=== PATIENT | male | born 1970 | race Caucasian/White ===

== ENCOUNTER 2017-09-10 20:09 | Emergency (ER) | payer BC ==
[2017-09-10] MEDS ORDERED: Acetaminophen/HYDROcodone 325-10 MG Tab PO ONE (20:10)
[2017-09-10 20:19] VITALS: BP 117/56
--- NOTE | 2017-09-10 20:50 | EDM.PDOC ---
ED HPI GENERAL MEDICAL PROBLEM - General Chief Complaint: Upper Extremity Injury/Pain Stated Complaint: dropped diaz of vehicle on hand [phone] Time Seen by Provider: 09/10/17 20:49 Source of Information: Reports: Patient History Limitations: Reports: No Limitations - History of Present Illness INITIAL COMMENTS - FREE TEXT/NARRATIVE: diaz of jeep fell onto left wrist yesterday today thumb all swollen and painful Right Hand Pain Score (Numeric/FACES): 6 - Related Data Allergies Allergy/AdvReac Type Severity Reaction Status Date / Time cyclobenzaprine HCl Allergy Tachycardia Verified 09/10/17 20:19 [From Flexeril] meperidine HCl [From Demerol] Allergy Vomiting Verified 09/10/17 20:19 morphine Allergy Vomiting Verified 09/10/17 20:19 Sulfa (Sulfonamide Allergy Itching Verified 09/10/17 20:19 Antibiotics) bee stings Allergy Tachycardia Uncoded 09/10/17 20:19 Home Meds: Home Meds Digoxin [Digox] 0.5 tab PO QPM 01/25/14 [History] Digoxin [Digox] 1 tab PO QAM 01/25/14 [History] FLUoxetine HCl [Fluoxetine HCl] 1 tab PO DAILY 01/25/14 [History] Lisinopril [Prinivil] 2 tab PO DAILY 01/25/14 [History] Metoprolol Tartrate [Lopressor] 1 tab PO BID 01/25/14 [History] Gabapentin [Neurontin] 600 mg PO TID 07/26/15 [History] Meloxicam 15 mg PO DAILY 07/26/15 [History] Methocarbamol 500 mg PO ASDIRECTED PRN 07/26/15 [History] Multivitamin with Minerals [Multiple Vitamin] 1 tab PO DAILY 07/26/15 [History] Omeprazole 20 mg PO DAILY 07/26/15 [History] traZODone HCl [Trazodone HCl] 50 mg PO DAILY 09/10/17 [History] Past Medical History HEENT History: Reports: Impaired Vision Other HEENT History: wears glasses Cardiovascular History: Reports: CAD, Heart Valve Replacement, High Cholesterol , Hypertension Respiratory History: Reports: None Gastrointestinal History: Reports: GERD Genitourinary History: Reports: None Musculoskeletal History: Reports: Back Pain, Chronic, Osteoarthritis Neurological History: Reports: None Psychiatric History: Reports: Depression Endocrine/Metabolic History: Reports: None Hematologic History: Reports: None Immunologic History: Reports: None Oncologic (Cancer) History: Reports: None Dermatologic History: Reports: None - Infectious Disease History Infectious Disease History: Reports: Chicken Pox - Past Surgical History Head Surgeries/Procedures: Reports: None GI Surgical History: Reports: Hernia, Inguinal Social & Family History - Family History Family Medical History: Noncontributory - Tobacco Use Smoking Status *Q: Never Smoker Second Hand Smoke Exposure: No - Caffeine Use Caffeine Use: Reports: Coffee, Soda, Tea - Recreational Drug Use Recreational Drug Use: No - Living Situation & Occupation Living situation: Reports: , with Family Occupation: Employed Review of Systems - Review of Systems Review Of Systems: ROS reveals no pertinent complaints other than HPI. ED EXAM, GENERAL - Physical Exam Exam: See Below Exam Limited By: No Limitations General Appearance: Alert, WD/WN, Mild Distress, Other (pain) Ears: Hearing Grossly Normal Throat/Mouth: Normal Voice, No Airway Compromise Head: Atraumatic Neck: Non-Tender, Full Range of Motion Respiratory/Chest: No Respiratory Distress Cardiovascular: Regular Rate, Rhythm GI/Abdominal: Soft, Non-Tender Extremities: Other (left thumb swollen tender R/P, NV wnl. no gross D/D.) Neurological: Alert, Oriented, Normal Cognition, Normal Gait, No Motor/Sensory Deficits Psychiatric: Flat Affect Skin Exam: Warm, Dry, Normal Color Lymphatic: No Adenopathy Course - Vital Signs Last Recorded V/S: Last Vital Signs Temp 36.6 C 09/10/17 20:15 Pulse 58 L 09/10/17 20:15 Resp 18 09/10/17 20:15 BP 117/56 L 09/10/17 20:15 Pulse Ox 97 09/10/17 20:15 - Re-Assessments/Exams Free Text/Narrative Re-Assessment/Exam: 09/10/17 21:21 results discussed with pt. Departure - Departure Time of Disposition: 21:22 Disposition: Home, Self-Care 01 Condition: Good Clinical Impression: Thumb contusion Qualifiers: Encounter type: initial encounter Damage to nail status: without damage Laterality: left Qualified Code(s): S60.012A - Contusion of left thumb without damage to nail, initial encounter - Discharge Information Instructions: Contusion, [id number] Referrals: Kelsey Mansfield, [employer] [Primary Care Provider] - Forms: ED Department Discharge Additional Instructions: 1) wear brace for comfort 2) ice intermittently to swelling 3) see clinic for possible MRI SCAN if not totally better in few days 4) recheck if there is any change or concern
[2017-09-10] MEDS ORDERED: Acetaminophen/HYDROcodone 325-10 MG Tab ONE (21:23)
== END 2017-09-10 21:27 | disposition home or self-care (01) ==
LOC: DL.ED 20:09
DX: S60.012A Contusion of left thumb without damage to nail, initial encounter (principal); E78.00 Pure hypercholesterolemia, unspecified; I10 Essential (primary) hypertension; Z88.2 Allergy status to sulfonamides; Z91.030 Bee allergy status; Z88.5 Allergy status to narcotic agent; Z88.8 Allergy status to other drugs, medicaments and biological substances; Z79.899 Other long term (current) drug therapy; W20.8XXA Other cause of strike by thrown, projected or falling object, initial encounter
CPT/HCPCS: 73130-LT; 99283; A9270-GY

== ENCOUNTER 2017-10-30 15:05 | Emergency (ER) | payer BC ==
[2017-10-30] MEDS ORDERED: Dexamethasone 4 MG/ML SDV IM ONE (17:36)
--- NOTE | 2017-10-30 17:49 | EDM.PDOC ---
Scribed by Poonam Mejias 10/30/17 8520 for Richie Mello MD ED HPI GENERAL MEDICAL PROBLEM - General Chief Complaint: Back Pain or Injury Stated Complaint: [id number] severe BACK PAIN Time Seen by Provider: 10/30/17 17:16 Source of Information: Reports: Patient, RN, RN Notes Reviewed History Limitations: Reports: No Limitations - History of Present Illness INITIAL COMMENTS - FREE TEXT/NARRATIVE: Patient presents to ER with complaint of flareup of chronic low back pain without any recent or new injury. Pain has been radiating down the right leg to the knee. Patient has history of 5 surgeries including hardware placement and fusion of the lower lumbar segments by Dr. Day in [place]. He has an appointment to see his doctor on Monday. Patient takes hydrocodone, Gabapentin and methacarbamol and Meloxican for his chronic pain. Onset: Gradual Duration: Getting Worse Location: Reports: Back (low) Quality: Reports: Ache Severity: Severe Improves with: Reports: None Worsens with: Reports: None Associated Symptoms: Reports: No Other Symptoms - Related Data Allergies Allergy/AdvReac Type Severity Reaction Status Date / Time cyclobenzaprine HCl Allergy Tachycardia Verified 09/10/17 20:19 [From Flexeril] meperidine HCl [From Demerol] Allergy Vomiting Verified 09/10/17 20:19 morphine Allergy Vomiting Verified 09/10/17 20:19 Sulfa (Sulfonamide Allergy Itching Verified 09/10/17 20:19 Antibiotics) bee stings Allergy Tachycardia Uncoded 09/10/17 20:19 Home Meds: Home Meds Digoxin [Digox] 0.5 tab PO QPM 01/25/14 [History] Digoxin [Digox] 1 tab PO QAM 01/25/14 [History] Lisinopril [Prinivil] 2 tab PO DAILY 01/25/14 [History] Metoprolol Tartrate [Lopressor] 1 tab PO BID 01/25/14 [History] Gabapentin [Neurontin] 600 mg PO TID 07/26/15 [History] Meloxicam 15 mg PO DAILY 07/26/15 [History] Methocarbamol 500 mg PO ASDIRECTED PRN 07/26/15 [History] Multivitamin with Minerals [Multiple Vitamin] 1 tab PO DAILY 07/26/15 [History] Omeprazole 20 mg PO DAILY 07/26/15 [History] traZODone HCl [Trazodone HCl] 50 mg PO DAILY 09/10/17 [History] Past Medical History HEENT History: Reports: Impaired Vision Other HEENT History: wears glasses Cardiovascular History: Reports: CAD, Heart Valve Replacement, High Cholesterol , Hypertension Respiratory History: Reports: None Gastrointestinal History: Reports: GERD Genitourinary History: Reports: None Musculoskeletal History: Reports: Back Pain, Chronic, Osteoarthritis Neurological History: Reports: None Psychiatric History: Reports: Depression Endocrine/Metabolic History: Reports: None Hematologic History: Reports: None Immunologic History: Reports: None Oncologic (Cancer) History: Reports: None Dermatologic History: Reports: None - Infectious Disease History Infectious Disease History: Reports: Chicken Pox - Past Surgical History Head Surgeries/Procedures: Reports: None GI Surgical History: Reports: Hernia, Inguinal Social & Family History - Family History Family Medical History: Noncontributory - Caffeine Use Caffeine Use: Reports: Coffee, Soda, Tea - Living Situation & Occupation Living situation: Reports: , with Family Occupation: Employed ED ROS GENERAL - Review of Systems Review Of Systems: ROS reveals no pertinent complaints other than HPI. ED EXAM,LOWER BACK PAIN/INJURY - Physical Exam Exam: See Below Exam Limited By: No Limitations General Appearance: Alert, WD/WN, No Apparent Distress Head: Atraumatic, Normocephalic Respiratory/Chest: No Respiratory Distress Cardiovascular: Normal Peripheral Pulses GI/Abdominal: Normal Bowel Sounds, Soft, Non-Tender, No Distention Back Exam: Decreased Range of Motion (due to pain), Muscle Spasm (lumbar region) , Paraspinal Tenderness (lumbar ), Other (A well healed midline low lumbar surgical scar of approximately 7cm. ). No: CVA Tenderness (L), CVA Tenderness ( R), Vertebral Tenderness Extremities: Normal Inspection, Normal Range of Motion, Non-Tender, No Pedal Edema, Normal Capillary Refill Neurological: Alert, Normal Mood/Affect, Normal Dorsiflexion, CN II-XII Intact, Normal Plantar Flexion, No Motor/Sensory Deficits, Oriented x 3, Other ( antalgic gait, but steady.) Psychiatric: Normal Affect, Normal Mood Skin Exam: Warm, Dry, Intact, Normal Color, No Rash Course - Orders/Labs/Meds Meds: Medications Discontinued Medications Generic Name Dose Route Start Last Admin Trade Name Freq PRN Reason Stop Dose Admin Dexamethasone 8 mg 07/09/18 17:36 10/30/17 17:44 Dexamethasone IM 10/30/17 17:37 8 mg ONETIME ONE Administration Departure - Departure Time of Disposition: 17:44 Disposition: Home, Self-Care 01 Condition: Fair Clinical Impression: Acute exacerbation of chronic low back pain, Lumbar radiculopathy - Discharge Information Instructions: Chronic Back Pain, Lumbosacral Radiculopathy Referrals: Kelsey Mansfield SANITATION MANAGER [Primary Care Provider] - Forms: ED Department Discharge Additional Instructions: RX: Decadron 4mg. RX: Lidocaine ointment5%. Follow up with your back specialist as scheduled. I have read and agree with the documentation that has been completed regarding this visit. By signing this record, I attest that the documentation was completed in my physical presence and is an accurate record of the encounter.
== END 2017-10-30 17:58 | disposition home or self-care (01) ==
LOC: DL.ED 15:05
DX: M54.16 Radiculopathy, lumbar region (principal); I10 Essential (primary) hypertension; Z88.8 Allergy status to other drugs, medicaments and biological substances; Z88.5 Allergy status to narcotic agent; Z88.2 Allergy status to sulfonamides; Z91.030 Bee allergy status; Z79.899 Other long term (current) drug therapy
CPT/HCPCS: 96372; 99283; J1100

== ENCOUNTER 2017-12-17 16:18 | Emergency (ER) | payer BC ==
[2017-12-17 16:27] VITALS: BP 151/80
[2017-12-17] MEDS ORDERED: Aspirin 81 MG Tab.Chew PO ONE (16:40)
[2017-12-17 17:07] LABS: ANION GAP 10.9; CHLORIDE,CL 102 mmol/L (101-111); SODIUM,NA 138 mmol/L (135-145)
--- NOTE | 2017-12-17 18:11 | EDM.PDOC ---
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 He has had increased stress recently with a divorce and an aunt who today. Patient works at [employer] today and developed chest discomfort and tightness in his chest about 1-1/2 hours ago. His release engineer in [facility] in [place]. He last saw her in September and everything was good. He takes Dig 0.25 in the a.m. and 1/2 of 0.25 evening. Patient states he can feel the skipped beats. Onset: Today Duration: Constant Location: Reports: Chest Quality: Reports: Ache Severity: Moderate Improves with: Reports: None Worsens with: Reports: None Associated Symptoms: Reports: No Other Symptoms - Related Data Allergies Allergy/AdvReac Type Severity Reaction Status Date / Time cyclobenzaprine HCl Allergy Tachycardia Verified 12/17/17 16:24 [From Flexeril] meperidine HCl [From Demerol] Allergy Vomiting Verified 12/17/17 16:24 morphine Allergy Vomiting Verified 12/17/17 16:24 Sulfa (Sulfonamide Allergy Itching Verified 12/17/17 16:24 Antibiotics) bee stings Allergy Tachycardia Uncoded 12/17/17 16:24 Home Meds: Home Meds Digoxin [Digox] 0.5 tab PO QPM 01/25/14 [History] Digoxin [Digox] 1 tab PO QAM 01/25/14 [History] Lisinopril [Prinivil] 2 tab PO DAILY 01/25/14 [History] Metoprolol Tartrate [Lopressor] 1 tab PO BID 01/25/14 [History] Gabapentin [Neurontin] 600 mg PO TID 07/26/15 [History] Meloxicam 15 mg PO DAILY 07/26/15 [History] Methocarbamol 500 mg PO ASDIRECTED PRN 07/26/15 [History] Multivitamin with Minerals [Multiple Vitamin] 1 tab PO DAILY 07/26/15 [History] Omeprazole 20 mg PO DAILY 07/26/15 [History] traZODone HCl [Trazodone HCl] 50 mg PO DAILY 09/10/17 [History] Past Medical History HEENT History: Reports: Impaired Vision Other HEENT History: wears glasses Cardiovascular History: Reports: CAD, Heart Valve Replacement, High Cholesterol , Hypertension, Other (See Below) (WPW with Maise treatment in 2004.) Respiratory History: Reports: None Gastrointestinal History: Reports: GERD Genitourinary History: Reports: None Musculoskeletal History: Reports: Back Pain, Chronic, Osteoarthritis Neurological History: Reports: None Psychiatric History: Reports: Depression Endocrine/Metabolic History: Reports: None Hematologic History: Reports: None Immunologic History: Reports: None Oncologic (Cancer) History: Reports: None Dermatologic History: Reports: None - Infectious Disease History Infectious Disease History: Reports: Chicken Pox - Past Surgical History Head Surgeries/Procedures: Reports: None GI Surgical History: Reports: Hernia, Inguinal Musculoskeletal Surgical History: Reports: Carpal Tunnel, Other (See Below) Other Musculoskeletal Surgeries/Procedures:: back, neck Social & Family History - Family History Family Medical History: Noncontributory - Tobacco Use Smoking Status *Q: Never Smoker Second Hand Smoke Exposure: No - Caffeine Use Caffeine Use: Reports: Soda - Recreational Drug Use Recreational Drug Use: No - Living Situation & Occupation Living situation: Reports: , with Family Occupation: Employed ED ROS GENERAL - Review of Systems Review Of Systems: ROS reveals no pertinent complaints other than HPI. ED EXAM, GENERAL - Physical Exam Exam: See Below Exam Limited By: No Limitations General Appearance: Alert, WD/WN, No Apparent Distress Eye Exam: Bilateral Eye: EOMI, Normal Inspection, PERRL Ears: Normal External Exam, Normal Canal, Hearing Grossly Normal, Normal TMs Nose: Normal Inspection, Normal Mucosa, No Blood Throat/Mouth: Normal Inspection, Normal Lips, Normal Teeth, Normal Gums, Normal Oropharynx, Normal Voice, No Airway Compromise Head: Atraumatic, Normocephalic Neck: Normal Inspection, Supple, Non-Tender, Full Range of Motion Respiratory/Chest: No Respiratory Distress, Lungs Clear Cardiovascular: Other (Systolic murmur grade 3/6. Irregular irregular.) GI/Abdominal: Normal Bowel Sounds, Soft, Non-Tender, No Organomegaly, No Distention, No Abnormal Bruit, No Mass (Male) Exam: Deferred Rectal (Males) Exam: Deferred Back Exam: Normal Inspection, Full Range of Motion, NT Extremities: Normal Inspection, Normal Range of Motion, Non-Tender, Normal Capillary Refill, No Pedal Edema Neurological: Alert, Oriented, CN II-XII Intact, Normal Cognition, Normal Gait, Normal Reflexes, No Motor/Sensory Deficits Psychiatric: Normal Affect, Normal Mood Skin Exam: Warm, Dry, Intact, Normal Color, No Rash Lymphatic: No Adenopathy Course - Vital Signs Last Recorded V/S: Last Vital Signs Temp 36.5 C 12/17/17 16:25 Pulse 68 12/17/17 16:25 Resp 16 12/17/17 16:25 BP 151/80 H 12/17/17 16:25 Pulse Ox 98 12/17/17 16:25 - Orders/Labs/Meds Orders: Active Orders 24 hr Category Date Time Status EKG Documentation Completion [RC] URGENT Care 12/17/17 16:23 Active Chest 1V Frontal [CR] Urgent Exams 12/17/17 16:23 Taken Labs: Laboratory Tests 12/17/17 12/17/17 12/17/17 Range/Units 16:34 16:34 16:34 WBC 8.6 (5.0-10.0) 10^3/uL RBC 4.17 L (4.6-6.2) 10^6/uL Hgb 12.6 L D (14.0-18.0) g/dL Hct 37.6 L (40.0-54.0) % MCV 90.2 D (80-100) fL MCH 30.2 (27.0-34.0) pg MCHC 33.5 (33.0-35.0) g/dL Plt Count 191 (150-450) 10^3/uL Neut % (Auto) 59.3 (42.2-75.2) % Lymph % (Auto) 26.6 (20.5-50.1) % [place] % (Auto) 12.7 H (2-8) % Eos % (Auto) 0.8 L (1.0-3.0) % Baso % (Auto) 0.6 (0.0-1.0) % Sodium 138 (135-145) mmol/L Potassium 3.9 (3.6-5.0) mmol/L Chloride 102 (101-111) mmol/L Carbon Dioxide 29.0 (21.0-31.0) mmol/L Anion Gap 10.9 BUN 24 H (7-18) mg/dL Creatinine 0.9 (0.6-1.3) mg/dL Est Cr Clr Drug Dosing 95.89 mL/min Estimated GFR (MDRD) > 60 BUN/Creatinine Ratio 26.66 Glucose 88 (74-105) mg/dL Calcium 8.7 (8.4-10.2) mg/dl Total Bilirubin 0.6 (0.2-1.0) mg/dL AST 27 (10-42) IU/L ALT 31 (10-60) IU/L Alkaline Phosphatase 100 (42-121) IU/L Troponin I < 0.02 (0.00-0.02) ng/ml Total Protein 7.7 (6.7-8.2) g/dl Albumin 4.1 (3.2-5.5) g/dl Globulin 3.6 Albumin/Globulin Ratio 1.14 Digoxin 1.1 (0-2.5) ng/ml Meds: Medications Discontinued Medications Generic Name Dose Route Start Last Admin Trade Name Freq PRN Reason Stop Dose Admin Aspirin 324 mg 12/17/17 16:40 12/17/17 16:44 Aspirin PO 12/17/17 16:41 324 mg ONETIME ONE Administration - Re-Assessments/Exams Free Text/Narrative Re-Assessment/Exam: 12/17/17 18:06 Consulted with [facility] regarding the patient's history, EKG, lab and x-ray results. Cardiology advised to have the patient contact his release engineer tomorrow to have a holter monitor placed. Departure - Departure Time of Disposition: 18:08 Disposition: Home, Self-Care 01 Condition: Fair Clinical Impression: Finding of multiple premature atrial contractions by electrocardiography Chest pain Qualifiers: Chest pain type: unspecified Qualified Code(s): R07.9 - Chest pain, unspecified Instructions: Nonspecific Chest Pain, [id number] Forms: ED Department Discharge Care Plan Goals: The patient was advised of the examination, lab, EKG and x-ray results during the visit. The patient was encouraged to follow-up with his release engineer tomorrow for continued evaluation and management. If the patient has any additional symptoms or concerns, the patient should follow-up with his primary care facility or return to the emergency department. - My Orders Last 24 Hours: My Active Orders 12/17/17 16:23 EKG Documentation Completion [RC] URGENT Chest 1V Frontal [CR] Urgent - Assessment/Plan Last 24 Hours: My Active Orders 12/17/17 16:23 EKG Documentation Completion [RC] URGENT Chest 1V Frontal [CR] Urgent I have read and agree with the documentation that has been completed regarding this visit. By signing this record, I attest that the documentation was completed in my physical presence and is an accurate record of the encounter.
--- NOTE | 2017-12-18 16:28 | EKG ---
12/17/2017 - MEME MONTENEGRO - TIME: 4:28 p.m. FINDINGS: As per my reading, sinus rhythm at 55, multiple atrial premature complexes. [facility] /[id number]
== END 2017-12-17 18:13 | disposition home or self-care (01) ==
LOC: DL.ED 16:18
DX: I49.1 Atrial premature depolarization (principal); I10 Essential (primary) hypertension; Z88.2 Allergy status to sulfonamides; Z91.030 Bee allergy status; Z79.899 Other long term (current) drug therapy; Z88.5 Allergy status to narcotic agent; Z88.8 Allergy status to other drugs, medicaments and biological substances
CPT/HCPCS: 36415; 71045; 80053; 80162; 84484; 85025; 93005; 99285; A9270

== ENCOUNTER 2019-02-23 11:46 | Emergency (ER) | payer BC, OTHER ==
[2019-02-23 12:00] VITALS: BP 146/71; PULSE 65
[2019-02-23] MEDS ORDERED: Ketorolac 30 MG/ML SDV IM ONE (12:23)
[2019-02-23] MEDS ORDERED: Lidocaine 5% Oint 35.44 GM Tube TOP ONE (12:29)
--- NOTE | 2019-02-23 12:30 | EDM.PDOC ---
Scribed by Poonam Mejias 02/23/19 1228 for Richie Mello MD ED HPI GENERAL MEDICAL PROBLEM - General Chief Complaint: General Stated Complaint: PAIN Time Seen by Provider: 02/23/19 12:10 Source of Information: Reports: Patient, RN, RN Notes Reviewed History Limitations: Reports: No Limitations - History of Present Illness INITIAL COMMENTS - FREE TEXT/NARRATIVE: Patient presents to ER by POV with complaint of generalized pain from chronic health issues. He has history of RA and OA, back surgeries and neck surgeries. Denies any new or recent injury. Onset: Gradual Duration: Constant Location: Reports: Generalized Quality: Reports: Ache Severity: Severe Improves with: Reports: None Worsens with: Reports: None Associated Symptoms: Reports: No Other Symptoms Generalized Pain Score (Numeric/FACES): 4 - Related Data Allergies Allergy/AdvReac Type Severity Reaction Status Date / Time meperidine HCl [From Demerol] Allergy Vomiting Verified 02/23/19 12:02 morphine Allergy Vomiting Verified 02/23/19 12:02 Sulfa (Sulfonamide Allergy Itching Verified 02/23/19 12:02 Antibiotics) bee stings Allergy Tachycardia Uncoded 02/23/19 12:02 Home Meds: Home Meds Digoxin [Digox] 0.5 tab PO QPM 01/25/14 [History] Lisinopril [Prinivil] 2 tab PO DAILY 01/25/14 [History] Metoprolol Tartrate [Lopressor] 150 tab PO BID 01/25/14 [History] Gabapentin [Neurontin] 1,200 mg PO TID 07/26/15 [History] Meloxicam 15 mg PO DAILY 07/26/15 [History] Methocarbamol 500 mg PO ASDIRECTED PRN 07/26/15 [History] Multivitamin with Minerals [Multiple Vitamin] 1 tab PO DAILY 07/26/15 [History] Omeprazole 20 mg PO DAILY 07/26/15 [History] traZODone HCl [Trazodone HCl] 50 mg PO DAILY 09/10/17 [History] Hydrocodone/Acetaminophen [Hydrocodon-Acetaminophen 5-325] 1 tab PO ASDIRECTED PRN 06/28/18 [History] Digoxin [Digitek] 250 mcg PO DAILY 02/23/19 [History] Past Medical History HEENT History: Reports: Impaired Vision Other HEENT History: wears glasses Cardiovascular History: Reports: CAD, Heart Valve Replacement, High Cholesterol , Hypertension, Other (See Below) Respiratory History: Reports: None Gastrointestinal History: Reports: GERD Genitourinary History: Reports: None Musculoskeletal History: Reports: Back Pain, Chronic, Neck Pain, Chronic, Osteoarthritis Neurological History: Reports: None Psychiatric History: Reports: Depression Endocrine/Metabolic History: Reports: None Hematologic History: Reports: None Immunologic History: Reports: None Oncologic (Cancer) History: Reports: None Dermatologic History: Reports: None - Infectious Disease History Infectious Disease History: Reports: Chicken Pox - Past Surgical History Head Surgeries/Procedures: Reports: None GI Surgical History: Reports: Hernia, Inguinal Musculoskeletal Surgical History: Reports: Carpal Tunnel, Other (See Below) Other Musculoskeletal Surgeries/Procedures:: back, neck surgery Social & Family History - Family History Family Medical History: Noncontributory - Tobacco Use Smoking Status *Q: Never Smoker - Caffeine Use Caffeine Use: Reports: Energy Drinks - Recreational Drug Use Recreational Drug Use: No - Living Situation & Occupation Living situation: Reports: , with Family Occupation: Employed ED ROS GENERAL - Review of Systems Review Of Systems: ROS reveals no pertinent complaints other than HPI. ED EXAM, GENERAL - Physical Exam Exam: See Below Exam Limited By: No Limitations General Appearance: Alert, WD/WN, No Apparent Distress Eye Exam: Bilateral Eye: Normal Inspection Throat/Mouth: Normal Inspection Head: Atraumatic, Normocephalic Neck: Normal Inspection, Non-Tender Respiratory/Chest: No Respiratory Distress, Lungs Clear, Normal Breath Sounds, No Accessory Muscle Use, Chest Non-Tender Cardiovascular: Regular Rate, Rhythm Back Exam: Decreased Range of Motion (Chronic/stable per pt). No: CVA Tenderness (L), CVA Tenderness (R), Paraspinal Tenderness, Vertebral Tenderness Extremities: Normal Capillary Refill, Joint Swelling (Chronic/stable at B/L hands/fingers per pt.), Limited Range of Motion (Hands, fingers, ankles). No: Increased Warmth, Redness Neurological: Alert, Oriented, CN II-XII Intact, Normal Cognition, No Motor/ Sensory Deficits Psychiatric: Normal Mood Skin Exam: Warm, Dry, Intact, Normal Color, No Rash Course - Vital Signs Last Recorded V/S: Last Vital Signs Temp 97.6 F 02/23/19 11:56 Pulse 65 02/23/19 11:56 Resp 14 02/23/19 11:56 BP 146/71 H 02/23/19 11:56 Pulse Ox 100 02/23/19 11:56 - Orders/Labs/Meds Orders: Active Orders 24 hr Category Date Time Status Lidocaine 5% Med 02/23/19 12:29 Once 15 gm TOP ONETIME ONE Meds: Medications Discontinued Medications Generic Name Dose Route Start Last Admin Trade Name Freq PRN Reason Stop Dose Admin Ketorolac Tromethamine 60 mg 02/23/19 12:23 Toradol IM 02/23/19 12:24 ONETIME ONE Departure - Departure Time of Disposition: 12:27 Disposition: Home, Self-Care 01 Condition: Good Clinical Impression: Rheumatoid arthritis flare - Discharge Information *PRESCRIPTION DRUG MONITORING PROGRAM REVIEWED*: No *COPY OF PRESCRIPTION DRUG MONITORING REPORT IN PATIENT JULIANNE: No Instructions: Arthritis Forms: ED Department Discharge Additional Instructions: Rx: Prednisone 20mg Use the Lidocaine Ointment to affected joints every 4 to 6 hours as needed for pain. Follow up in clinic this week for recheck and referral to kiss mixer. - My Orders Last 24 Hours: My Active Orders 02/23/19 12:29 Lidocaine 5% 15 gm TOP ONETIME ONE - Assessment/Plan Last 24 Hours: My Active Orders 02/23/19 12:29 Lidocaine 5% 15 gm TOP ONETIME ONE I have read and agree with the documentation that has been completed regarding this visit. By signing this record, I attest that the documentation was completed in my physical presence and is an accurate record of the encounter.
== END 2019-02-23 12:42 | disposition home or self-care (01) ==
LOC: DL.ED 11:46
DX: M06.9 Rheumatoid arthritis, unspecified (principal); I25.10 Atherosclerotic heart disease of native coronary artery without angina pectoris; I10 Essential (primary) hypertension; K21.9 Gastro-esophageal reflux disease without esophagitis; Z91.030 Bee allergy status; Z88.5 Allergy status to narcotic agent; Z88.2 Allergy status to sulfonamides; Z79.899 Other long term (current) drug therapy
CPT/HCPCS: 96372; 99283; A9270; J1885

== ENCOUNTER 2020-05-02 10:17 | Emergency (ER) | payer BC ==
[2020-05-02 10:24] VITALS: BP 106/47; PULSE 64
[2020-05-02] MEDS ORDERED: Sodium Chloride 0.9% 10 ML Syringe FLUSH PRN (10:24)
[2020-05-02] MEDS ORDERED: Aspirin 81 MG Tab.Chew PO ONE (10:25)
--- NOTE | 2020-05-02 10:53 | CR ---
PROCEDURE INFORMATION: Exam: XR Chest, 1 View Exam date and time: 05/02/2020 10:44 AM Age: 50 years old Clinical indication: Chest pain TECHNIQUE: Imaging protocol: XR of the chest Views: 1 view. COMPARISON: CR Chest 1V Frontal 12/17/2017 4:39 PM FINDINGS: Lungs: Unremarkable. No consolidation. Pleural space: Unremarkable. No pleural effusion. No pneumothorax. Heart/Mediastinum: The heart size is mildly enlarged with postoperative change from prior cardiac surgery. Bones/joints: Unremarkable. IMPRESSION: 1. Cardiomegaly and postoperative change. No acute cardiopulmonary disease present.
[2020-05-02 11:03] LABS: PTT,PARTIAL THROMBOPLSTIN TIME 28.1 SEC (22.0-34.0)
[2020-05-02 11:11] LABS: ANION GAP 15.1 mEq/L (7-13); CHLORIDE,CL 105 mmol/L (98-107); SODIUM,NA 141 mmol/L (136-145)
--- NOTE | 2020-05-02 12:04 | EDM.PDOC ---
Scribed by Poonam Mejias 05/02/20 1113 for Lyle Mello MD ED HPI GENERAL MEDICAL PROBLEM - General Chief Complaint: Chest Pain Stated Complaint: CHEST PAIN Time Seen by Provider: 05/02/20 10:22 Source of Information: Reports: Patient, RN, RN Notes Reviewed History Limitations: Reports: No Limitations - History of Present Illness INITIAL COMMENTS - FREE TEXT/NARRATIVE: Patient arrives to ED by POV with chest pain for 2 days. He has had recurrent postural near syncope for 2 weeks. Chest pain is intermittent centered in left chest radiating into left arm accompanied with nausea. No reported vomiting. Also complaining of dry cough. Rates the pain 3/10. Reports history of cold during where he felt congested with nausea and chills. Negative COVID test around . History of a tricuspid valve reconstruction in 2011. History of neck fusion and lumbar rods as well as spinal stimulator Denies fever, productive cough, chills, headache, blurry vision, difficulty swallowing, shortness of breath, abdominal pain and edema in the lower extremities. Onset: Gradual Duration: Waxing/Waning Location: Reports: Chest, Upper Extremity, Left Quality: Reports: Sharp Severity: Mild Improves with: Reports: None Worsens with: Reports: None Associated Symptoms: Reports: Nausea/Vomiting, Syncope (near) Left Chest Pain Score (Numeric/FACES): 3 - Related Data Allergies Allergy/AdvReac Type Severity Reaction Status Date / Time meperidine HCl [From Demerol] Allergy Vomiting Verified 05/02/20 10:24 morphine Allergy Vomiting Verified 05/02/20 10:24 Sulfa (Sulfonamide Allergy Itching Verified 05/02/20 10:24 Antibiotics) bee stings Allergy Tachycardia Uncoded 05/02/20 10:24 Home Meds: Home Meds Metoprolol Tartrate [Lopressor] 150 tab PO BID 01/25/14 [History] lisinopriL [Prinivil] 2 tab PO DAILY 01/25/14 [History] Gabapentin [Neurontin] 1,200 mg PO TID 07/26/15 [History] Meloxicam 15 mg PO DAILY 07/26/15 [History] Multivitamin with Minerals [Multiple Vitamin] 1 tab PO DAILY 07/26/15 [History] Omeprazole 20 mg PO DAILY 07/26/15 [History] traZODone HCl [Trazodone HCl] 50 mg PO DAILY 09/10/17 [History] Digoxin [Digitek] 250 mcg PO DAILY 02/23/19 [History] Past Medical History HEENT History: Reports: Impaired Vision Other HEENT History: wears glasses Cardiovascular History: Reports: CAD, Heart Valve Replacement, High Cholesterol, Hypertension, Other (See Below) Respiratory History: Reports: None Gastrointestinal History: Reports: GERD Genitourinary History: Reports: None Musculoskeletal History: Reports: Back Pain, Chronic, Neck Pain, Chronic, Osteoarthritis Neurological History: Reports: None Psychiatric History: Reports: Depression Endocrine/Metabolic History: Reports: None Hematologic History: Reports: None Immunologic History: Reports: None Oncologic (Cancer) History: Reports: None Dermatologic History: Reports: None - Infectious Disease History Infectious Disease History: Reports: Chicken Pox - Past Surgical History Head Surgeries/Procedures: Reports: None GI Surgical History: Reports: Hernia, Inguinal Musculoskeletal Surgical History: Reports: Carpal Tunnel, Other (See Below) Other Musculoskeletal Surgeries/Procedures:: back, neck surgery Social & Family History - Family History Family Medical History: No Pertinent Family History - Caffeine Use Caffeine Use: Reports: Energy Drinks - Living Situation & Occupation Living situation: Reports: , with Family Occupation: Employed ED ROS GENERAL - Review of Systems Review Of Systems: Comprehensive ROS is negative, except as noted in HPI. ED EXAM, GENERAL - Physical Exam Exam: See Below Exam Limited By: No Limitations General Appearance: Alert, WD/WN, No Apparent Distress Nose: Normal Inspection Throat/Mouth: Normal Inspection, Normal Lips, Normal Teeth, Normal Gums, Normal Oropharynx, Normal Voice, No Airway Compromise Head: Atraumatic, Normocephalic Neck: Normal Inspection, Supple, Non-Tender, Full Range of Motion Respiratory/Chest: No Respiratory Distress, Lungs Clear, Normal Breath Sounds, No Accessory Muscle Use, Chest Non-Tender Cardiovascular: Normal Peripheral Pulses, Regular Rate, Rhythm, No Edema, No Gallop, No JVD, No Murmur, No Rub Peripheral Pulses: 2+: Radial (R), 4+: Carotid (L), Carotid (R), Brachial (L), Brachial (R), Radial (L), Femoral (L), Femoral (R), Posterior Tibial (L), Posterior Tibial (R), Dorsalis Pedis (L), Dorsalis Pedis (R) GI/Abdominal: Soft, Non-Tender (Male) Exam: Deferred Rectal (Males) Exam: Deferred Neurological: Alert, Oriented, Normal Cognition Psychiatric: Normal Affect #1 Interpretation EKG Date: 05/02/20 Time: 10:25 Rhythm: Other (sinus rhythm) Rate (Beats/Min): 61 [place]: Normal P-Wave: Present QRS: Normal ST-T: Other (borderline T abnormalities, diffuse leads) QT: Normal Comparison: No Change Course - Vital Signs Last Recorded V/S: Last Vital Signs Temp 97.3 F 05/02/20 10:20 Pulse 64 05/02/20 10:20 Resp 18 05/02/20 10:20 BP 106/47 L 05/02/20 10:20 Pulse Ox 95 05/02/20 10:20 Orthostatic Blood Pressure [ 104/56 Standing] Orthostatic Blood Pressure [ 105/59 Sitting] Orthostatic Blood Pressure [ 103/51 Supine] - Orders/Labs/Meds Orders: Active Orders 24 hr Category Date Time Status EKG 12 Lead [EKG Documentation Completion] [RC] STAT Care 05/02/20 10:23 Active Orthostatic Vital Signs [RC] ASDIRECTED Care 05/02/20 10:33 Active Peripheral IV Care [RC] . DIRECTED Care 05/02/20 10:24 Active Sodium Chloride 0.9% [Saline Flush] Med 05/02/20 10:24 Active 10 ml FLUSH ASDIRECTED PRN Peripheral IV Insertion Adult [OM.PC] Routine Oth 05/02/20 10:23 Ordered Medication Orders Sodium Chloride (Saline Flush) 10 ml FLUSH ASDIRECTED PRN PRN Reason: Keep Vein Open Last Admin: 05/02/20 10:41 Dose: 10 ml Documented by: LILLIAM Labs: Laboratory Tests 05/02/20 05/02/20 05/02/20 Range/Units 10:36 10:36 10:36 WBC 8.0 (5.0-10.0) 10^3/uL RBC 4.44 L (4.6-6.2) 10^6/uL Hgb 13.8 L (14.0-18.0) g/dL Hct 39.9 L (40.0-54.0) % MCV 89.9 (80-100) fL MCH 31.1 (27.0-34.0) pg MCHC 34.6 (33.0-35.0) g/dL Plt Count 171 (150-450) 10^3/uL Neut % (Auto) 63.2 (42.2-75.2) % Lymph % (Auto) 24.5 (20.5-50.1) % [place] % (Auto) 10.3 H (2-8) % Eos % (Auto) 1.6 (1.0-3.0) % Baso % (Auto) 0.4 (0.0-1.0) % PT 10.4 (9.0-12.0) SEC INR 1.1 (0.9-1.2) APTT 28.1 (22.0-34.0) SEC D-Dimer, Quantitative (0-400) ng/mL Sodium 141 (136-145) mmol/L Potassium 4.1 (3.5-5.1) mmol/L Chloride 105 (98-107) mmol/L Carbon Dioxide 25 (21-32) mmol/L Anion Gap 15.1 H (7-13) mEq/L BUN 23 H (7-18) mg/dL Creatinine 1.08 (0.70-1.30) mg/dL Est Cr Clr Drug Dosing 74.66 mL/min Estimated GFR (MDRD) > 60 BUN/Creatinine Ratio 21.3 (No establ ref range) Glucose 95 (74-99) mg/dL Calcium 8.5 (8.5-10.1) mg/dL Magnesium 1.9 (1.8-2.4) mg/dL Total Bilirubin 0.3 (0.2-1.0) mg/dL AST 28 (15-37) U/L ALT 39 (16-63) U/L Alkaline Phosphatase 123 H (46-116) U/L Creatine Kinase 231 (39-308) U/L Troponin I < 0.017 (0.000-0.056) ng/mL B-Natriuretic Peptide 37 (0-100) pg/ml Total Protein 7.4 (6.4-8.2) g/dL Albumin 3.8 (3.4-5.0) g/dL Globulin 3.6 Albumin/Globulin Ratio 1.1 Amylase 51 (25-115) U/L Lipase 193 (73-393) U/L TSH, Ultra Sensitive 1.18 (0.36-3.74) uIU/mL Digoxin (0.9-2.0) ng/mL 05/02/20 05/02/20 Range/Units 10:36 10:36 WBC (5.0-10.0) 10^3/uL RBC (4.6-6.2) 10^6/uL Hgb (14.0-18.0) g/dL Hct (40.0-54.0) % MCV (80-100) fL MCH (27.0-34.0) pg MCHC (33.0-35.0) g/dL Plt Count (150-450) 10^3/uL Neut % (Auto) (42.2-75.2) % Lymph % (Auto) (20.5-50.1) % [place] % (Auto) (2-8) % Eos % (Auto) (1.0-3.0) % Baso % (Auto) (0.0-1.0) % PT (9.0-12.0) SEC INR (0.9-1.2) APTT (22.0-34.0) SEC D-Dimer, Quantitative < 100 (0-400) ng/mL Sodium (136-145) mmol/L Potassium (3.5-5.1) mmol/L Chloride (98-107) mmol/L Carbon Dioxide (21-32) mmol/L Anion Gap (7-13) mEq/L BUN (7-18) mg/dL Creatinine (0.70-1.30) mg/dL Est Cr Clr Drug Dosing mL/min Estimated GFR (MDRD) BUN/Creatinine Ratio (No establ ref range) Glucose (74-99) mg/dL Calcium (8.5-10.1) mg/dL Magnesium (1.8-2.4) mg/dL Total Bilirubin (0.2-1.0) mg/dL AST (15-37) U/L ALT (16-63) U/L Alkaline Phosphatase (46-116) U/L Creatine Kinase (39-308) U/L Troponin I (0.000-0.056) ng/mL B-Natriuretic Peptide (0-100) pg/ml Total Protein (6.4-8.2) g/dL Albumin (3.4-5.0) g/dL Globulin Albumin/Globulin Ratio Amylase (25-115) U/L Lipase (73-393) U/L TSH, Ultra Sensitive (0.36-3.74) uIU/mL Digoxin 2.3 H* (0.9-2.0) ng/mL Meds: Medications Generic Name Dose Route Start Last Admin Trade Name Freq PRN Reason Stop Dose Admin Sodium Chloride 10 ml 05/02/20 10:24 05/02/20 10:41 Saline Flush FLUSH 10 ml ASDIRECTED PRN Administration Keep Vein Open Discontinued Medications Generic Name Dose Route Start Last Admin Trade Name Freq PRN Reason Stop Dose Admin Aspirin 324 mg 05/02/20 10:25 05/02/20 10:40 Aspirin PO 05/02/20 10:26 324 mg ONETIME ONE Administration - Radiology Interpretation Free Text/Narrative:: [facility] [place] [facility] Final Radiology Report Call: [phone] assistance Online chat: [email or web address] Name: MEME MONTENEGRO Age: 50Years M Date: 05/02/2020 SSN: -- : [id number] Study: CR CHEST 1V FRONTAL Requesting Physician: LYLE MELLO Images: 1 Addl Studies: Provided Clinical History: chest pain Contrast: Contrast Medium: Contrast Amount: Contrast Method: CONFIDENTIALITY STATEMENT This report is intended only for use by the referring physician, and only in accordance with law. If you received this in error, call [phone]. Page 1 of 1 PROCEDURE INFORMATION: Exam: XR Chest, 1 View Exam date and time: 05/02/2020 10:44 AM Age: 50 years old Clinical indication: Chest pain TECHNIQUE: Imaging protocol: XR of the chest Views: 1 view. COMPARISON: CR Chest 1V Frontal 12/17/2017 4:39 PM FINDINGS: Lungs: Unremarkable. No consolidation. Pleural space: Unremarkable. No pleural effusion. No pneumothorax. Heart/Mediastinum: The heart size is mildly enlarged with postoperative change from prior cardiac surgery. Bones/joints: Unremarkable. IMPRESSION: 1. Cardiomegaly and postoperative change. No acute cardiopulmonary disease present. Thank you for allowing us to participate in the care of your patient. Dictated and Authenticated by: Romel Mishra MD 05/02/2020 10:52 AM Central Time ([place] & [place]) - Re-Assessments/Exams Free Text/Narrative Re-Assessment/Exam: 05/02/20 11:51 Pt has essentially ruled himself out from an acute cardiac ischemia standpoint. He has negative Troponin, no ischemic changes on his EKG, and no other acute findings on exam. He does have a moderately noticeable stronger pulse at the l eft radial, compared to the right radial wrist. Unclear if this is related to his recurrent near syncope or not. 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 Follow up Monday, with your primary clinic for consideration of CT Angio Neck and chest for evaluation of the difference in blood pressure and pulse strength in on your right arm compared to the left. Also, to see if that explains a vascular cause for your postural near syncope episodes. Sepsis Event Note (ED) - Focused Exam Vital Signs: Vital Signs Temp Pulse Resp BP Pulse Ox 05/02/20 10:20 97.3 F 64 18 106/47 L 95 - My Orders Last 24 Hours: My Active Orders 05/02/20 10:23 EKG 12 Lead [EKG Documentation Completion] [RC] STAT Peripheral IV Insertion Adult [OM.PC] Routine 05/02/20 10:24 Peripheral IV Care [RC] . DIRECTED Sodium Chloride 0.9% [Saline Flush] 10 ml FLUSH ASDIRECTED PRN 05/02/20 10:33 Orthostatic Vital Signs [RC] ASDIRECTED - Assessment/Plan Last 24 Hours: My Active Orders 05/02/20 10:23 EKG 12 Lead [EKG Documentation Completion] [RC] STAT Peripheral IV Insertion Adult [OM.PC] Routine 05/02/20 10:24 Peripheral IV Care [RC] . DIRECTED Sodium Chloride 0.9% [Saline Flush] 10 ml FLUSH ASDIRECTED PRN 05/02/20 10:33 Orthostatic Vital Signs [RC] ASDIRECTED I have read and agree with the documentation that has been completed regarding this visit. By signing this record, I attest that the documentation was completed in my physical presence and is an accurate record of the encounter.
== END 2020-05-02 12:10 | disposition home or self-care (01) ==
LOC: DL.ED 10:17
DX: G45.8 Other transient cerebral ischemic attacks and related syndromes (principal); R55 Syncope and collapse; R07.89 Other chest pain; R79.89 Other specified abnormal findings of blood chemistry; I25.10 Atherosclerotic heart disease of native coronary artery without angina pectoris; I10 Essential (primary) hypertension; K21.9 Gastro-esophageal reflux disease without esophagitis; Z79.899 Other long term (current) drug therapy; Z88.5 Allergy status to narcotic agent; Z88.2 Allergy status to sulfonamides; Z91.030 Bee allergy status
CPT/HCPCS: 36415; 71045; 80053; 80162; 82150; 82550; 83690; 83735; 83880; 84443; 84484; 85025; 85379; 85610; 85730; 93005; 93010; 99284; A9270

== ENCOUNTER 2020-05-12 10:43 | Emergency (ER) | payer BC ==
[2020-05-12 11:06] VITALS: BP 124/66; PULSE 56
--- NOTE | 2020-05-12 11:30 | CR ---
PROCEDURE INFORMATION: Exam: XR Chest, 1 View Exam date and time: 05/12/2020 11:05 AM Age: 50 years old Clinical indication: Other: Chest pain TECHNIQUE: Imaging protocol: XR of the chest Views: 1 view. COMPARISON: CR Chest 1V Frontal 05/02/2020 10:44 AM FINDINGS: Lungs: Unremarkable. No consolidation. Pleural space: Unremarkable. No pleural effusion. No pneumothorax. Heart/Mediastinum: Borderline heart size Bones/joints: Status post lower cervical fusion. There is evidence of a previous sternotomy. IMPRESSION: No acute findings.
[2020-05-12 11:35] LABS: ANION GAP 12.4 mEq/L (7-13); CHLORIDE,CL 103 mmol/L (98-107); SODIUM,NA 138 mmol/L (136-145)
--- NOTE | 2020-05-12 11:38 | EDM.PDOC ---
ED HPI GENERAL MEDICAL PROBLEM - General Chief Complaint: Cardiovascular Problem Stated Complaint: CHEST DISCOMFORT Time Seen by Provider: 05/12/20 11:15 Source of Information: Reports: Patient, Old Records, RN, RN Notes Reviewed History Limitations: Reports: No Limitations - History of Present Illness INITIAL COMMENTS - FREE TEXT/NARRATIVE: Patient presents to the ED via personal vehicle with complaints of chest discomfort and shortness of breath. The patient reports a history of tricuspid valve repair in 2003 and is subsequently on Digoxin, Metoprolol, and Lisinopril. He states he was seen in this facility last week for similar symptoms and has since been in contact with Cardiology; he has an appointment to be seen by Cardiology tomorrow. The patient states his chest discomfort has been going on for several weeks and is not improving or worsening. He denies recent illness, fever, shaking chills, cough, sore throat, palpitations, dyspepsia, nausea, vomiting, or diarrhea. He denies tobacco, alcohol, or recreational drug use. - Related Data Allergies Allergy/AdvReac Type Severity Reaction Status Date / Time meperidine HCl [From Demerol] Allergy Vomiting Verified 05/02/20 10:24 morphine Allergy Vomiting Verified 05/02/20 10:24 Sulfa (Sulfonamide Allergy Itching Verified 05/02/20 10:24 Antibiotics) bee stings Allergy Tachycardia Uncoded 05/02/20 10:24 Home Meds: Home Meds Metoprolol Tartrate [Lopressor] 150 tab PO BID 01/25/14 [History] lisinopriL [Prinivil] 2 tab PO DAILY 01/25/14 [History] Gabapentin [Neurontin] 1,200 mg PO TID 07/26/15 [History] Meloxicam 15 mg PO DAILY 07/26/15 [History] Multivitamin with Minerals [Multiple Vitamin] 1 tab PO DAILY 07/26/15 [History] Omeprazole 20 mg PO DAILY 07/26/15 [History] traZODone HCl [Trazodone HCl] 50 mg PO DAILY 09/10/17 [History] Digoxin [Digitek] 250 mcg PO DAILY 02/23/19 [History] Past Medical History HEENT History: Reports: Impaired Vision Other HEENT History: wears glasses Cardiovascular History: Reports: CAD, Heart Valve Replacement, High Cholesterol, Hypertension, Other (See Below) Respiratory History: Reports: None Gastrointestinal History: Reports: GERD Genitourinary History: Reports: None Musculoskeletal History: Reports: Back Pain, Chronic, Neck Pain, Chronic, Osteoarthritis Neurological History: Reports: None Psychiatric History: Reports: Depression Endocrine/Metabolic History: Reports: None Hematologic History: Reports: None Immunologic History: Reports: None Oncologic (Cancer) History: Reports: None Dermatologic History: Reports: None - Infectious Disease History Infectious Disease History: Reports: Chicken Pox, Influenza - Past Surgical History Head Surgeries/Procedures: Reports: None Cardiovascular Surgical History: Reports: Valve Replacement GI Surgical History: Reports: Hernia, Inguinal Musculoskeletal Surgical History: Reports: Carpal Tunnel, Other (See Below) Other Musculoskeletal Surgeries/Procedures:: back, neck surgery, spinal cord stimulator Social & Family History - Family History Family Medical History: No Pertinent Family History - Tobacco Use Tobacco Use Status *Q: Never Tobacco User - Caffeine Use Caffeine Use: Reports: None - Recreational Drug Use Recreational Drug Use: No - Living Situation & Occupation Living situation: Reports: , with Family Occupation: Employed ED ROS GENERAL - Review of Systems Review Of Systems: Comprehensive ROS is negative, except as noted in HPI. ED EXAM, GENERAL - Physical Exam Exam: See Below Exam Limited By: No Limitations General Appearance: Alert, No Apparent Distress Eye Exam: Bilateral Eye: EOMI, Normal Inspection, PERRL (3mm) Throat/Mouth: Normal Inspection, Normal Voice, No Airway Compromise Head: Atraumatic, Normocephalic Neck: Normal Inspection, Supple, Non-Tender, Full Range of Motion. No: Lymphadenopathy (L), Lymphadenopathy (R) Respiratory/Chest: No Respiratory Distress, Lungs Clear, Normal Breath Sounds, No Accessory Muscle Use, Chest Non-Tender Cardiovascular: Normal Peripheral Pulses, Regular Rate, Rhythm, No Edema, No Gallop, No JVD, No Murmur, No Rub Peripheral Pulses: 1+: Radial (R), 2+: Radial (L) GI/Abdominal: Normal Bowel Sounds, Soft, Non-Tender, No Distention, No Mass, Pelvis Stable (Male) Exam: Deferred Rectal (Males) Exam: Deferred Back Exam: Normal Inspection, Full Range of Motion Extremities: Normal Inspection, Normal Range of Motion, Non-Tender, No Pedal Edema, Normal Capillary Refill Neurological: Alert, Oriented, CN II-XII Intact, Normal Cognition, Normal Gait, No Motor/Sensory Deficits Psychiatric: Normal Affect, Normal Mood Skin Exam: Warm, Dry, Intact, Normal Color, No Rash. No: Ecchymosis, Erythema, Increased Warmth, Jaundice, Mottled, Pallor, Petechiae, Rash #1 Interpretation EKG Date: 05/12/20 Time: 10:59 Rhythm: Other (Sinus Bradycardia) [place]: Normal P-Wave: Present QRS: Normal ST-T: Normal QT: Normal Comparison: No Change EKG Interpretation Comments: SB: No evidence of acute ischemia Course - Vital Signs Last Recorded V/S: Last Vital Signs Temp 98.2 F 05/12/20 11:02 Pulse 56 L 05/12/20 11:02 Resp 16 05/12/20 11:02 BP 124/66 05/12/20 11:02 Pulse Ox 99 05/12/20 11:02 - Orders/Labs/Meds Orders: Active Orders 24 hr Category Date Time Status EKG Documentation Completion [RC] STAT Care 05/12/20 10:47 Active Labs: Laboratory Tests 05/12/20 05/12/20 05/12/20 Range/Units 10:59 10:59 10:59 WBC 8.3 (5.0-10.0) 10^3/uL RBC 4.34 L (4.6-6.2) 10^6/uL Hgb 13.5 L (14.0-18.0) g/dL Hct 38.9 L (40.0-54.0) % MCV 89.6 (80-100) fL MCH 31.1 (27.0-34.0) pg MCHC 34.7 (33.0-35.0) g/dL Plt Count 186 (150-450) 10^3/uL Neut % (Auto) 64.2 (42.2-75.2) % Lymph % (Auto) 24.0 (20.5-50.1) % [place] % (Auto) 10.4 H (2-8) % Eos % (Auto) 1.2 (1.0-3.0) % Baso % (Auto) 0.2 (0.0-1.0) % Sodium 138 (136-145) mmol/L Potassium 4.4 (3.5-5.1) mmol/L Chloride 103 (98-107) mmol/L Carbon Dioxide 27 (21-32) mmol/L Anion Gap 12.4 (7-13) mEq/L BUN 25 H (7-18) mg/dL Creatinine 1.01 (0.70-1.30) mg/dL Est Cr Clr Drug Dosing 85.59 mL/min Estimated GFR (MDRD) > 60 BUN/Creatinine Ratio 24.8 (No establ ref range) Glucose 88 (74-99) mg/dL Calcium 8.8 (8.5-10.1) mg/dL Total Bilirubin 0.4 (0.2-1.0) mg/dL AST 20 (15-37) U/L ALT 38 (16-63) U/L Alkaline Phosphatase 125 H (46-116) U/L Troponin I < 0.017 (0.000-0.056) ng/mL B-Natriuretic Peptide 44 (0-100) pg/ml Total Protein 7.6 (6.4-8.2) g/dL Albumin 3.8 (3.4-5.0) g/dL Globulin 3.8 Albumin/Globulin Ratio 1.0 Digoxin (0.9-2.0) ng/mL 05/12/20 Range/Units 10:59 WBC (5.0-10.0) 10^3/uL RBC (4.6-6.2) 10^6/uL Hgb (14.0-18.0) g/dL Hct (40.0-54.0) % MCV (80-100) fL MCH (27.0-34.0) pg MCHC (33.0-35.0) g/dL Plt Count (150-450) 10^3/uL Neut % (Auto) (42.2-75.2) % Lymph % (Auto) (20.5-50.1) % [place] % (Auto) (2-8) % Eos % (Auto) (1.0-3.0) % Baso % (Auto) (0.0-1.0) % Sodium (136-145) mmol/L Potassium (3.5-5.1) mmol/L Chloride (98-107) mmol/L Carbon Dioxide (21-32) mmol/L Anion Gap (7-13) mEq/L BUN (7-18) mg/dL Creatinine (0.70-1.30) mg/dL Est Cr Clr Drug Dosing mL/min Estimated GFR (MDRD) BUN/Creatinine Ratio (No establ ref range) Glucose (74-99) mg/dL Calcium (8.5-10.1) mg/dL Total Bilirubin (0.2-1.0) mg/dL AST (15-37) U/L ALT (16-63) U/L Alkaline Phosphatase (46-116) U/L Troponin I (0.000-0.056) ng/mL B-Natriuretic Peptide (0-100) pg/ml Total Protein (6.4-8.2) g/dL Albumin (3.4-5.0) g/dL Globulin Albumin/Globulin Ratio Digoxin 1.6 (0.9-2.0) ng/mL - Radiology Interpretation Free Text/Narrative:: Cardiac workup unremarkable for acute processes. CXR unremarkable for acute processes. Lab results, imaging, and EKG discussed with patient. Patient instructed to continue with Cardiology appointment, as previously scheduled. Patient verbalized understanding and agreement with the plan of care. Departure - Departure Time of Disposition: 11:59 Disposition: Home, Self-Care 01 Condition: Good Clinical Impression: Atypical chest pain Instructions: Nonspecific Chest Pain, Adult, [id number] Forms: ED Department Discharge Additional Instructions: 1.) Continue with your previously scheduled Cardiology appointment tomorrow for ongoing investigation into this problem. 2.) Continue with your medications, as previously prescribed. 3.) Drink plenty of water to stay hydrated. Sepsis Event Note (ED) - Evaluation Sepsis Screening Result: No Definite Risk - Focused Exam Vital Signs: Vital Signs Temp Pulse Resp BP Pulse Ox 05/12/20 11:02 98.2 F 56 L 16 124/66 99
== END 2020-05-12 12:13 | disposition home or self-care (01) ==
LOC: DL.ED 10:43
DX: R07.89 Other chest pain (principal); I25.10 Atherosclerotic heart disease of native coronary artery without angina pectoris; I10 Essential (primary) hypertension; K21.9 Gastro-esophageal reflux disease without esophagitis; Z88.5 Allergy status to narcotic agent; Z88.2 Allergy status to sulfonamides; Z91.030 Bee allergy status
CPT/HCPCS: 36415; 71045; 80053; 80162; 83880; 84484; 85025; 93005; 99285-25

== ENCOUNTER 2020-09-09 11:06 | Inpatient (IN) | payer BC ==
--- NOTE | 2020-09-09 11:34 | EDM.PDOC ---
ED HPI GENERAL MEDICAL PROBLEM - General Chief Complaint: General Stated Complaint: DEHYDRATION ? SEEING WHITE FLASHES BODY ACHE TIRED Time Seen by Provider: 09/09/20 11:20 Source of Information: Reports: Patient History Limitations: Reports: No Limitations - History of Present Illness INITIAL COMMENTS - FREE TEXT/NARRATIVE: This 50 yo male patient reports to the ED due to feeling fatigue. The patient reports he was working outside on Monday when he started to feel some heart palpitations and saw spots. The patient reports yesterday he had several similar episodes. The patient reports today he has been feeling very fatigued. The patient reports he called his primary care facility and was advised to come to the ED. The patient reports he has not had any heart palpitations or chest pain today. The patient reports he did attempt to replace his fluids, but reports drinking about 10 ounces of Gatorade today. Onset Date: 09/07/20 Duration: Intermittent Location: Reports: Generalized Quality: Reports: Other Severity: Mild Improves with: Reports: None Worsens with: Reports: None Context: Reports: Activity Associated Symptoms: Reports: No Other Symptoms, Nausea/Vomiting (nausea no vomiting) - Related Data Allergies Allergy/AdvReac Type Severity Reaction Status Date / Time meperidine HCl [From Demerol] Allergy Vomiting Verified 05/02/20 10:24 morphine Allergy Vomiting Verified 05/02/20 10:24 Sulfa (Sulfonamide Allergy Itching Verified 05/02/20 10:24 Antibiotics) bee stings Allergy Tachycardia Uncoded 05/02/20 10:24 Home Meds: Home Meds lisinopriL [Prinivil] 40 mg PO DAILY 01/25/14 [History] Gabapentin [Neurontin] 600 mg PO TID 07/26/15 [History] Meloxicam 15 mg PO DAILY 07/26/15 [History] Multivitamin with Minerals [Multiple Vitamin] 1 tab PO DAILY 07/26/15 [History] Omeprazole 20 mg PO DAILY 07/26/15 [History] traZODone HCl [Trazodone HCl] 50 mg PO BEDTIME 09/10/17 [History] Digoxin [Digitek] 250 mcg PO DAILY 02/23/19 [History] Ascorbic Acid [Vitamin C] 1,000 mg PO DAILY 05/18/20 [History] Cholecalciferol (Vitamin D3) [Vitamin D3] 2,000 units PO DAILY 05/18/20 [History] Cyclobenzaprine [Flexeril] 10 mg PO BEDTIME PRN 05/18/20 [History] Digoxin 125 mcg PO BEDTIME 05/18/20 [History] Eletriptan [Relpax] 40 mg PO ASDIRECTED PRN 05/18/20 [History] Escitalopram [Lexapro] 20 mg PO DAILY 05/18/20 [History] Metoprolol Tartrate 100 mg PO BID 05/18/20 [History] Topiramate [Topamax] 75 mg PO BID 05/18/20 [History] Turmeric Root Extract [Turmeric] 500 mg PO DAILY 05/18/20 [History] Vitamin B Complex [B Complex] 1 tab PO DAILY 05/18/20 [History] busPIRone HCl [busPIRone] 30 mg PO BID 05/18/20 [History] methocarbamoL [Methocarbamol] 500 - 1,000 mg PO Q6HR PRN 05/18/20 [History] Past Medical History HEENT History: Reports: Impaired Vision Other HEENT History: wears glasses Cardiovascular History: Reports: CAD, Heart Valve Replacement, High Cholesterol, Hypertension, Other (See Below) Respiratory History: Reports: None Gastrointestinal History: Reports: GERD Genitourinary History: Reports: None Musculoskeletal History: Reports: Back Pain, Chronic, Neck Pain, Chronic, Osteoarthritis Neurological History: Reports: None Psychiatric History: Reports: Depression Endocrine/Metabolic History: Reports: None Hematologic History: Reports: None Immunologic History: Reports: None Oncologic (Cancer) History: Reports: None Dermatologic History: Reports: None - Infectious Disease History Infectious Disease History: Reports: Chicken Pox, Influenza - Past Surgical History Head Surgeries/Procedures: Reports: None Cardiovascular Surgical History: Reports: Valve Replacement GI Surgical History: Reports: Hernia, Inguinal Musculoskeletal Surgical History: Reports: Carpal Tunnel, Other (See Below) Other Musculoskeletal Surgeries/Procedures:: back, neck surgery, spinal cord stimulator Social & Family History - Family History Family Medical History: No Pertinent Family History - Caffeine Use Caffeine Use: Reports: None - Living Situation & Occupation Living situation: Reports: , with Family Occupation: Employed ED ROS GENERAL - Review of Systems Review Of Systems: Comprehensive ROS is negative, except as noted in HPI. ED EXAM, GENERAL - Physical Exam Exam: See Below Exam Limited By: No Limitations General Appearance: Alert, WD/WN, Moderate Distress Eye Exam: Bilateral Eye: EOMI, Normal Inspection, PERRL Ears: Normal External Exam, Normal Canal, Hearing Grossly Normal, Normal TMs Nose: Normal Inspection, Normal Mucosa, No Blood Throat/Mouth: Normal Inspection, Normal Lips, Normal Teeth, Normal Gums, Normal Oropharynx, Normal Voice, No Airway Compromise Head: Atraumatic, Normocephalic Neck: Normal Inspection, Supple, Non-Tender, Full Range of Motion Respiratory/Chest: No Respiratory Distress, Lungs Clear, Normal Breath Sounds, No Accessory Muscle Use, Chest Non-Tender Cardiovascular: Normal Peripheral Pulses, Regular Rate, Rhythm, No Edema, No Gallop, No JVD, No Murmur, No Rub GI/Abdominal: Normal Bowel Sounds, Soft, Non-Tender, No Organomegaly, No Distention, No Abnormal Bruit, No Mass (Male) Exam: Deferred Rectal (Males) Exam: Deferred Back Exam: Normal Inspection, Full Range of Motion, NT Extremities: Normal Inspection, Normal Range of Motion, Non-Tender, Normal Capillary Refill, No Pedal Edema Neurological: Alert, Oriented, CN II-XII Intact, Normal Cognition, Normal Gait, Normal Reflexes, No Motor/Sensory Deficits Psychiatric: Normal Affect, Normal Mood Skin Exam: Warm, Dry, Intact, Normal Color, No Rash Lymphatic: No Adenopathy Course - Vital Signs Last Recorded V/S: Last Vital Signs Temp 97.1 F 09/09/20 11:44 Pulse 76 09/09/20 11:44 Resp 14 09/09/20 11:44 BP 101/53 L 09/09/20 11:44 Pulse Ox 98 09/09/20 11:44 - Orders/Labs/Meds Orders: Active Orders 24 hr Category Date Time Status Admission Diagnosis [ADT] Urgent ADT 09/09/20 12:42 Ordered Admission Status [Patient Status] [ADT] Routine ADT 09/09/20 12:42 Ordered EKG Documentation Completion [RC] STAT Care 09/09/20 11:28 Active COVID-19/FLU A+B [MOLEC] Urgent Lab 09/09/20 12:36 Ordered Sodium Chloride 0.9% [Normal Saline] 1,000 ml Med 09/09/20 12:34 Active IV .BOLUS Medication Orders Sodium Chloride (Normal Saline) 1,000 mls @ 999 mls/hr IV .BOLUS ONE Stop: 09/09/20 13:34 Labs: Laboratory Tests 09/09/20 09/09/20 Range/Units 11:36 11:36 WBC 9.2 (5.0-10.0) 10^3/uL RBC 3.78 L (4.6-6.2) 10^6/uL Hgb 11.9 L D (14.0-18.0) g/dL Hct 35.4 L (40.0-54.0) % MCV 93.7 D (80-100) fL MCH 31.5 (27.0-34.0) pg MCHC 33.6 (33.0-35.0) g/dL Plt Count 180 (150-450) 10^3/uL Neut % (Auto) 67.5 (42.2-75.2) % Lymph % (Auto) 20.1 L (20.5-50.1) % [place] % (Auto) 10.5 H (2-8) % Eos % (Auto) 1.7 (1.0-3.0) % Baso % (Auto) 0.2 (0.0-1.0) % Sodium 140 (136-145) mmol/L Potassium 3.8 (3.5-5.1) mmol/L Chloride 104 (98-107) mmol/L Carbon Dioxide 19 L (21-32) mmol/L Anion Gap 20.8 H (7-13) mEq/L BUN 64 H D (7-18) mg/dL Creatinine 5.17 H* D (0.70-1.30) mg/dL Est Cr Clr Drug Dosing 16.72 mL/min Estimated GFR (MDRD) 12 BUN/Creatinine Ratio 12.4 (No establ ref range) Glucose 105 H (70-99) mg/dL Calcium 7.7 L (8.5-10.1) mg/dL Magnesium 2.5 H (1.8-2.4) mg/dL Total Bilirubin 0.5 (0.2-1.0) mg/dL AST 51 H (15-37) U/L ALT 54 (16-63) U/L Alkaline Phosphatase 139 H (46-116) U/L Troponin I < 0.017 (0.000-0.056) ng/mL Total Protein 6.9 (6.4-8.2) g/dL Albumin 3.5 (3.4-5.0) g/dL Globulin 3.4 Albumin/Globulin Ratio 1.0 Meds: Medications Generic Name Dose Route Start Last Admin Trade Name Geri PRN Reason Stop Dose Admin Sodium Chloride 1,000 mls @ 999 mls/hr 09/09/20 12:34 Normal Saline IV 09/09/20 13:34 .BOLUS ONE Departure - Departure Time of Disposition: 12:44 Disposition: Admitted As Inpatient 67 Condition: Fair Clinical Impression: Acute renal failure Qualifiers: Acute renal failure type: unspecified Qualified Code(s): N17.9 - Acute kidney failure, unspecified - Discharge Information *PRESCRIPTION DRUG MONITORING PROGRAM REVIEWED*: Not Applicable *COPY OF PRESCRIPTION DRUG MONITORING REPORT IN PATIENT JULIANNE: Not Applicable Care Plan Goals: Discussed the patient's history, examination, EKG and lab results with Dr. Saenz. Dr. Saenz accepted the patient for continued evaluation and treatment as an inpatient at [facility]. Sepsis Event Note (ED) - Focused Exam Vital Signs: Vital Signs Temp Pulse Resp BP Pulse Ox 09/09/20 11:44 97.1 F 76 14 101/53 L 98 - My Orders Last 24 Hours: My Active Orders 09/09/20 11:28 EKG Documentation Completion [RC] STAT 09/09/20 12:34 Sodium Chloride 0.9% [Normal Saline] 1,000 ml IV .BOLUS 09/09/20 12:36 COVID-19/FLU A+B [MOLEC] Urgent 09/09/20 12:42 Admission Diagnosis [ADT] Urgent Admission Status [Patient Status] [ADT] Routine - Assessment/Plan Last 24 Hours: My Active Orders 09/09/20 11:28 EKG Documentation Completion [RC] STAT 09/09/20 12:34 Sodium Chloride 0.9% [Normal Saline] 1,000 ml IV .BOLUS 09/09/20 12:36 COVID-19/FLU A+B [MOLEC] Urgent 09/09/20 12:42 Admission Diagnosis [ADT] Urgent Admission Status [Patient Status] [ADT] Routine
[2020-09-09 12:29] LABS: ANION GAP 20.8 mEq/L (7-13); CHLORIDE,CL 104 mmol/L (98-107); SODIUM,NA 140 mmol/L (136-145)
[2020-09-09] MEDS ORDERED: Sodium Chloride 0.9% 1,000 ML IV ONE (12:34)
[2020-09-09 13:23] LABS: CORONAVIRUS COVID-19 NAA NEGATIVE (NEGATIVE)
[2020-09-09] MEDS ORDERED: Acetaminophen 325 MG Tab PO PRN (14:04)
[2020-09-09] MEDS ORDERED: Cyclobenzaprine 10 MG Tab PO PRN (14:18)
[2020-09-09] MEDS: Sodium Chloride 0.9% 1,000 ML IV SCH ×2 (16:11→23:23)
--- NOTE | 2020-09-09 16:38 | US ---
EXAMINATION: Retroperitoneal Comp SEX: Male AGE: 50 years CLINICAL HISTORY: 50-year-old "dehydrated" male with acute kidney injury. Interpretation: Negative exam. 1. Normal reniform size, axis and configuration bilaterally. Right kidney measures 11.7 cm L. (Right kidney measures 6.07 cm W). Left kidney measures 12.68 cm L. (left kidney measures 6.53 cm W). 2. No sign of cystic or solid renal cortical mass lesion. No cortical "mantle" inflammation or scar. 3. No sonographic evidence of urolithiasis or obstructive uropathy. 4. Symmetrically distended normal appearing urinary bladder. No mucosal wall mass or dependent stones. 5. No extra vesicular pelvic mass lesion.
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
[2020-09-09] MEDS: traZODone 50 MG Tab PO SCH (21:06)
[2020-09-09] MEDS: Topiramate 25 MG Tab PO SCH (21:06)
[2020-09-09] MEDS: Heparin Sodium 5,000 Units/ML Vial SUBCUT SCH (21:10)
[2020-09-10] MEDS: Heparin Sodium 5,000 Units/ML Vial SUBCUT SCH ×3 (05:20→21:38)
[2020-09-10] MEDS ORDERED: Omeprazole 20 MG Cap.CR PO SCH (06:00)
[2020-09-10] MEDS: Sodium Chloride 0.9% 1,000 ML IV SCH ×2 (06:37→14:50)
[2020-09-10 07:09] LABS: ANION GAP 13.6 mEq/L (7-13)
[2020-09-10] MEDS: Topiramate 25 MG Tab PO SCH ×3 (09:28→20:26)
[2020-09-10] MEDS: Metoprolol Tartrate 50 MG Tab PO SCH ×2 (09:29→20:27)
[2020-09-10] MEDS: Gabapentin 400 MG Cap PO SCH ×3 (10:31→20:27)
[2020-09-10] MEDS: Digoxin 125 MCG Tab PO SCH (10:32)
[2020-09-10] MEDS: busPIRone 15 MG Tab PO SCH ×2 (10:32→20:26)
[2020-09-10] MEDS: Escitalopram 10 MG Tab PO SCH (10:33)
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
[2020-09-10] MEDS: traZODone 50 MG Tab PO SCH (20:26)
[2020-09-10] MEDS ORDERED: atorvaSTATin 20 MG Tab PO SCH (21:00)
[2020-09-11] MEDS: Heparin Sodium 5,000 Units/ML Vial SUBCUT SCH (06:04)
[2020-09-11 06:38] LABS: ANION GAP 15.2 mEq/L (7-13); CHLORIDE,CL 112 mmol/L (98-107); SODIUM,NA 146 mmol/L (136-145)
[2020-09-11] MEDS: Sodium Chloride 0.9% 1,000 ML IV SCH ×2 (07:29→07:37)
[2020-09-11] MEDS: Topiramate 25 MG Tab PO SCH (08:13)
[2020-09-11] MEDS: busPIRone 15 MG Tab PO SCH (08:13)
[2020-09-11] MEDS: Gabapentin 400 MG Cap PO SCH (08:13)
[2020-09-11] MEDS: Digoxin 125 MCG Tab PO SCH (08:14)
[2020-09-11 08:15] VITALS: PULSE 60
[2020-09-11] MEDS: Metoprolol Tartrate 50 MG Tab PO SCH (08:15)
[2020-09-11] MEDS: Escitalopram 10 MG Tab PO SCH (08:15)
[2020-09-11 09:39] VITALS: BP 121/63
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
== END 2020-09-11 09:25 | disposition home or self-care (01) | DRG 469 ==
LOC: DL.ED 11:06 → DL.MS 12:42
PROVIDERS: ADMIT Internal Medicine; ATTEND Internal Medicine
DX: N17.9 Acute kidney failure, unspecified (principal); K21.9 Gastro-esophageal reflux disease without esophagitis; E86.0 Dehydration; E78.5 Hyperlipidemia, unspecified; I10 Essential (primary) hypertension; I25.10 Atherosclerotic heart disease of native coronary artery without angina pectoris; F32.9 Major depressive disorder, single episode, unspecified; M06.9 Rheumatoid arthritis, unspecified; Z20.822 Contact with and (suspected) exposure to COVID-19
CPT/HCPCS: 0240U; 36415; 76770; 80048; 80053; 80162; 81001; 82550; 82570; 82728; 83540; 83550; 83735; 84100; 84156; 84300; 84484; 85025; 85651; 85999; 86140; 93005; 99284; 99284-25; A9270-GY; J7030

== ENCOUNTER 2020-12-19 12:33 | Emergency (ER) | payer BC ==
[2020-12-19 13:57] VITALS: BP 126/71; PULSE 71
[2020-12-19] MEDS ORDERED: Ketorolac 30 MG/ML SDV IM ONE (14:17)
[2020-12-19] MEDS ORDERED: fentaNYL 100 MCG/2 ML SDV IM ONE (14:17)
[2020-12-19] MEDS ORDERED: Dexamethasone 4 MG/ML SDV IM ONE (14:17)
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
== END 2020-12-19 14:51 | disposition home or self-care (01) ==
LOC: DL.ED 12:33
DX: M25.551 Pain in right hip (principal); M25.552 Pain in left hip; M25.572 Pain in left ankle and joints of left foot; M25.571 Pain in right ankle and joints of right foot; M79.641 Pain in right hand; M79.642 Pain in left hand; M25.521 Pain in right elbow; M25.511 Pain in right shoulder; M25.512 Pain in left shoulder; R21 Rash and other nonspecific skin eruption; I25.10 Atherosclerotic heart disease of native coronary artery without angina pectoris; E78.00 Pure hypercholesterolemia, unspecified; I10 Essential (primary) hypertension; K21.9 Gastro-esophageal reflux disease without esophagitis; M19.90 Unspecified osteoarthritis, unspecified site; E66.9 Obesity, unspecified; Z68.31 Body mass index [BMI] 31.0-31.9, adult; Z88.5 Allergy status to narcotic agent; Z88.2 Allergy status to sulfonamides; Z91.030 Bee allergy status; Z79.899 Other long term (current) drug therapy
CPT/HCPCS: 96372; 99283; J1100; J1885; J3010

== ENCOUNTER 2021-03-13 08:33 | Emergency (ER) | payer BC ==
[2021-03-13 08:53] VITALS: BP 123/81; PULSE 85
[2021-03-13 09:45] LABS: ANION GAP 16.6 mEq/L (7-13); CHLORIDE,CL 101 mmol/L (98-107); SODIUM,NA 136 mmol/L (136-145)
[2021-03-13] MEDS ORDERED: Ondansetron 4 MG/2 ML SDV IVPUSH ONE (10:32)
[2021-03-13] MEDS ORDERED: Famotidine 20 MG/2 ML SDV IVPUSH ONE (10:32)
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
== END 2021-03-13 11:05 | disposition home or self-care (01) ==
LOC: DL.ED 08:33
DX: U07.1 COVID-19 (principal); I25.10 Atherosclerotic heart disease of native coronary artery without angina pectoris; I10 Essential (primary) hypertension; E78.00 Pure hypercholesterolemia, unspecified; K21.9 Gastro-esophageal reflux disease without esophagitis; M19.90 Unspecified osteoarthritis, unspecified site; E66.9 Obesity, unspecified; Z68.31 Body mass index [BMI] 31.0-31.9, adult; Z88.5 Allergy status to narcotic agent; Z88.2 Allergy status to sulfonamides; Z91.030 Bee allergy status; Z79.899 Other long term (current) drug therapy
CPT/HCPCS: 36415; 80053; 80162; 82272; 83735; 83880; 85025; 85379; 85610; 86140; 87040; 93005; 96374; 96375; 99284-25; J2405; J3490